=== PATIENT | male | born 1965 | race African-American/Black ===

== ENCOUNTER 2017-07-20 21:45 | Emergency (ER) | payer BC ==
[~2017-07-20 21:45] MED LIST: Iopamidol 370 76% 125 ML VIAL FS ONE; Sodium Chloride 0.9% 1,000 ML BAG ONE; Sodium Chloride 0.9% 100 ML BAG ONE
[2017-07-20] MEDS ORDERED: Ondansetron HCl/PF 4 MG/2 ML Vial ONE (22:23)
[2017-07-20] MEDS ORDERED: Acetaminophen 500 MG TAB ONE (22:24)
[2017-07-20] MEDS ORDERED: methylPREDNISolone Sod Succ/PF 125 MG/2 ML VIAL ONE (22:24)
--- NOTE | 2017-07-20 22:29 | RAD ---
TWO VIEW CHEST: 07/20/17 HISTORY: Dyspnea. Cough. COMPARISON: 06/14/11. Heart is upper normal size. Postop sternotomy changes are noted. The lung grady are clear. No infil trate or vascular congestion. No significant effusion. IMPRESSION: Postop sternotomy change with prosthetic heart valve and borderline cardiomegaly. No acute lung proc ess. POS: [facility]
[2017-07-20 22:33] LABS: INR-International Normal Ratio 3.7; PTT 55.4 SEC (22.9-36.1); Prothrombin Time 38.1 SEC (12.0-14.7)
[2017-07-20 22:52] LABS: ALT (SGPT) 77 U/L (8-55); AST (SGOT) 59 U/L (5-34); Albumin 4.3 g/dL (3.5-5.0); Alkaline Phosphatase 53 U/L (40-150); Anion Gap 17 mmol/L (10-20); BUN (Urea Nitrogen) 25 mg/dL (8.4-25.7); Bilirubin, Total 0.4 mg/dL (0.2-1.2); CK (CPK) 276 U/L (30-200); CKMB 1.7 ng/mL (0-6.6); Calc. Creatinine Clearance 0 mL/min (70-130); Carbon Dioxide 18 mmol/L (22-29); Chloride 105 mmol/L (98-107); Estimated GFR-MDRD 60; Globulin 2.9 g/dL (2.4-3.5); Glucose 96 mg/dL (70-105); Lipase 32 U/L (8-78); Potassium 4.9 mmol/L (3.5-5.1); Protein, Total 7.2 g/dL (6.0-8.3); Sodium 135 mmol/L (136-145); Troponin I Less than 0.010 ng/mL (< 0.028)
[2017-07-20 22:54] LABS: #Eosinphils 1.6 thou/uL (0.0-0.7); #Lymphocytes 1.6 thou/uL (1.20-3.40); #Neutrophils 7.1 thou/uL (1.40-6.50); %Basophils 1.7 % (0.0-1.0); %Eosinophils 3.4 % (0.0-10.0); %Lymphocytes 15.7 % (21.0-51.0); %Monocytes 9.6 % (0.0-10.0); %Neutrophils 69.6 % (42.0-75.0); Hemoglobin 15.6 g/dL (14.0-18.0); Mean Corpuscular HGB CONC 30.1 g/dL (32.0-36.0); Mean Corpuscular Volume 86.4 fL (80.0-94.0); Mean Platelet Volume 10.1 fL (7.4-10.4); Platelet Count 178 thou/uL (130-400); RBC Distribution Width 14.2 % (11.5-14.5); Red Blood Cell (RBC) Count 5.99 mill/uL (4.70-6.10); White Blood Cell (WBC) Count 10.2 thou/uL (4.8-10.8)
[2017-07-21] MEDS ORDERED: cefTRIAXone\\ROCEPHIN 2 GM VIAL ONE (01:48)
--- NOTE | 2017-07-21 08:19 | CT ---
PRELIMINARY REPORT/[facility]/EMERGENCY AFTER HOURS PROCEDURE: EXAM: CT Angiography Chest With Intravenous Contrast CLINICAL HISTORY: 52 years old, male; Dyspnea, fever; Chest pain on breathing; elevated d-dimer x 1 day, Prior surgery ; date: 6+ months; type: Heart surgery; HX mi, hypertension, asthma TECHNIQUE: Axial computed tomographic angiography images of the chest with intravenous contrast using pulmonary embolism protocol. All CT scans at this facility use one or more dose reduction techniques, viz.: a utomated exposure control; ma/kV adjustment per patient size (including targeted exams where dose is matched to indication; i.e. head); or iterative reconstruction technique. MIP reconstructed images were created and reviewed. Oblique reformatted images were created and reviewed. CONTRAST: 125 mL of ISOVUE 370 administered intravenously. COMPARISON: No relevant prior studies available. FINDINGS: Pulmonary arteries: No evidence of pulmonary embolism. Aorta: Normal caliber thoracic aorta without dissection or aneurysm. Lungs: Mild patches of infiltrate or atelectasis in the right lower lobe. Bibasilar linear parenchym al scarring or subsegmental collapse / atelectasis. Small calcified granuloma posterolateral left lo wer lobe image 80, series 2. No mass. Pleural space: No pleural fluid collection. No pneumothorax. Heart: Prior median sternotomy with mitral / tricuspid valve replacements. No pericardial effusion. No evidence of RV dysfunction. Bones/joints: See above. Soft tissues: Unremarkable. Lymph nodes: No pathologically enlarged lymph nodes. Liver: Small hemangioma within the anterior / superior liver. Possible second hemangioma in the infe romedial liver IMPRESSION: 1. No evidence of pulmonary embolism. 2. Mild patches of infiltrate or atelectasis in the right lower lobe. 3. Bibasilar linear parenchymal scarring or subsegmental collapse / atelectasis. Thank you for allowing us to participate in the care of your patient. Dictated and Authenticated by: Fco Gustafson MD 07/21/2017 1:25 AM Central Time ([place] \T\ Jun) FINAL REPORT EMERGENT AFTER HOURS CT ANGIOGRAM THORAX WITH IV CONTRAST AND 3D RECONSTRUCTIONS: DATE: 07/21/17. HISTORY: Dyspnea, chest pain, and elevated D-dimer. Symptoms have been present for 1 day. History of prior myocardial infarction as well as hypertension. IMPRESSION: 1. Suboptimal opacification of the subsegmental pulmonary arteries, but no definite filling defect is seen to suggest a pulmonary embolus. 2. Thoracic aorta is normal in caliber without evidence of an aortic dissection. 3. Mitral valve and tricuspid valve replacements are noted. Heart is mildly enlarged with a greate r degree of left atrial enlargement. 4. Probable atelectasis in the right lower lobe. However, developing area of pneumonitis could not be entirely excluded. 5. Hypodense lesion in the left hepatic lobe measuring 2.3 cm which does demonstrate a focal area o f peripheral enhancement and this may represent a small hemangioma. It is difficult to entirely chance racterize on this exam. There is also a smaller subcentimeter hypodense lesion seen within the medi al aspect of the right hepatic lobe near the gallbladder which also could not be characterized on th is exam. 6. Findings are in agreement with the preliminary report by [facility]. POS: [facility]
== END 2017-07-21 02:23 | disposition home or self-care (01) ==
LOC: MADERS 21:45
DX: J18.9 Pneumonia, unspecified organism (principal); E78.5 Hyperlipidemia, unspecified; J45.909 Unspecified asthma, uncomplicated; I10 Essential (primary) hypertension; I25.2 Old myocardial infarction; F17.210 Nicotine dependence, cigarettes, uncomplicated; Z79.01 Long term (current) use of anticoagulants; Z79.899 Other long term (current) drug therapy
CPT/HCPCS: 71020; 71275; 80053; 82550; 82553; 83605; 83690; 83880; 84484; 85025; 85610; 85730; 87040; 93005; 94640; 94760; 96361; 96365; 96375; J0696; J2405; J2930; J7050; J7620

== ENCOUNTER 2023-05-09 11:06 | Emergency (ER) | payer MEDICARE, BC ==
[~2023-05-09 11:06] MED LIST changes: -Iopamidol 370 76% 125 ML VIAL FS ONE; -Sodium Chloride 0.9% 1,000 ML BAG ONE; -Sodium Chloride 0.9% 100 ML BAG ONE; +Sodium Chloride 0.9% 500 ML BAG ONE
[2023-05-09 11:46] LABS: #Basophils 0.2 thou/uL (0.0-0.2); #Eosinphils 0.2 thou/uL (0.0-0.7); #Lymphocytes 2.8 thou/uL (1.20-3.40); #Monocytes 0.7 thou/uL (0.11-0.59); #Neutrophils 8.3 thou/uL (1.40-6.50); %Basophils 1.5 % (0.0-1.0); %Eosinophils 1.7 % (0.0-10.0); %Lymphocytes 22.7 % (21.0-51.0); %Monocytes 5.7 % (0.0-10.0); %Neutrophils 68.5 % (42.0-75.0); Hemoglobin 16.1 g/dL (14.0-18.0); Mean Corpuscular HGB CONC 29.9 g/dL (32.0-36.0); Mean Corpuscular Hemoglobin 25.2 pg (27.0-31.0); Mean Corpuscular Volume 84.3 fl (78.0-98.0); Mean Platelet Volume 11.1 fL (7.4-10.4); Platelet Count 198 10x3/uL (130-400); RBC Distribution Width 15.2 % (11.5-14.5); Red Blood Cell (RBC) Count 6.36 mill/uL (4.70-6.10); White Blood Cell (WBC) Count 12.1 10x3/uL (4.8-10.8)
[2023-05-09 11:47] LABS: Anisocytosis SLIGHT = 6-15 cells (100X) (0-5/hpf); MDiff Complete? YES; Platelet Adequacy Comment Appears Adequate; Target Cells SLIGHT = 2-5 cells (100X) (0-1/hpf)
[2023-05-09 11:49] LABS: Prothrombin Time 32.6 sec (12.0-14.7)
[2023-05-09 11:50] LABS: PTT 42.9 sec (22.9-36.1)
[2023-05-09 11:53] LABS: Anion Gap 14 mmol/L (10-20); BUN (Urea Nitrogen) 27 mg/dL (8.4-25.7); Calc. Creatinine Clearance 0 mL/min (70-130); Calcium 9.3 mg/dL (7.8-10.44); Carbon Dioxide 25 mmol/L (22-29); Chloride 104 mmol/L (98-107); Estimated GFR 25; Glucose 82 mg/dL (70-105); Potassium 4.6 mmol/L (3.5-5.1); Sodium 138 mmol/L (136-145)
[2023-05-09 11:56] LABS: ALT (SGPT) 37 U/L (8-55); AST (SGOT) 23 U/L (5-34); Albumin 4.7 g/dL (3.5-5.0); Alkaline Phosphatase 47 U/L (40-110); Bilirubin, Direct 0.2 mg/dL (0.1-0.3); Bilirubin, Total 0.5 mg/dL (0.2-1.2); Protein, Total 7.4 g/dL (6.0-8.3)
== END 2023-05-09 12:32 | disposition home or self-care (01) ==
LOC: MADERS 11:06
DX: K62.5 Hemorrhage of anus and rectum (principal); K64.8 Other hemorrhoids; E78.00 Pure hypercholesterolemia, unspecified; I10 Essential (primary) hypertension; F17.210 Nicotine dependence, cigarettes, uncomplicated; J45.909 Unspecified asthma, uncomplicated; Z79.899 Other long term (current) drug therapy; Z79.82 Long term (current) use of aspirin
CPT/HCPCS: 80048; 80076; 82274; 85025; 85610; 85730; 99283; J7030